=== PATIENT | male | born 1990 | race Caucasian/White ===

== ENCOUNTER 2021-09-02 15:46 | Emergency (ER) | payer OTHER ==
[~2021-09-02] VITALS: Ht 180.3 cm; Wt 63.1 kg
[2021-09-02 15:52] VITALS: BP 117/78
--- NOTE | 2021-09-02 16:02 | NUR ---
PT AMB TO BED 8.
[2021-09-02 16:29] LABS: BASOPHILS % (AUTO) 0.5 % (0.0-2.0); EOSINOPHILS # (AUTO) 0.4 K/uL (0-0.4); EOSINOPHILS % (AUTO) 6.6 % (0.0-4.0); HEMATOCRIT 43.3 % (36-52); HEMOGLOBIN 14.3 g/dL (12.0-18.0); LYMPHOCYTES # (AUTO) 1.6 K/uL (2.0-11.5); LYMPHOCYTES % (AUTO) 24.9 % (20.5-51.1); MEAN CORPUSCULAR HEMOGLOBIN 32 pg (27-31); MEAN CORPUSCULAR HGB CONC 33 g/dL (33-37); MEAN CORPUSCULAR VOLUME 95.4 fL (80-94); MONOCYTES # (AUTO) 0.9 K/uL (0.8-1.0); MONOCYTES % (AUTO) 14.9 % (1.7-9.3); NEUTROPHILS # (AUTO) 3.3 K/uL (1.8-7.7); NEUTROPHILS % (AUTO) 53.1 % (42.2-75.2); PLATELET COUNT (AUTO) 243 K/uL (140-450); RED BLOOD CELL COUNT(AUTO) 4.54 MIL/uL (4.20-6.10); WHITE BLOOD COUNT (AUTO) 6.2 K/uL (4.8-10.8)
--- NOTE | 2021-09-02 16:30 | NUR ---
31YO MALE PT C/O BLOODY STOOL XSUNDAY. PT REPORTS INITIAL RED BLOODY STOOL AND BROWN DIARRHEA XTODAY. PT STATES CONSTANT CRAMPING 5/10 LLQ ABDOMINAL DISCOMFORT. PT ABDOMEN NON DISTENDED AND TENDER TO TOUCH, ACTIVE X4. PT STATES NAUSEA WHEN EATING, DNIES AT THIS TIME. DENIES N/V , CHEST PAIN OR SOB. DENIES RECENT CHANGE IN DIET OR INURY. PT AAOX4, NO VISIBLE DISTRESS, RESPIRATIONS EVEN AND UNLABORED. DAUGHTER AT BEDSIDE. HX: DENIES NKA
[2021-09-02 16:51] LABS: ANION GAP 13.2 (8-16); CARBON DIOXIDE 27.5 mmol/L (21-32); CREATININE 1.1 mg/dL (0.6-1.3); POTASSIUM 3.7 mmol/L (3.5-5.1); TOTAL BILIRUBIN 0.4 mg/dL (0.0-1.0)
--- NOTE | 2021-09-02 19:09 | NUR ---
PT TAKEN TO CT VIA WHEELCHAIR
--- NOTE | 2021-09-02 19:30 | NUR ---
REPORT GIVEN TO [facility]. ALL QUESTION ANSWERED. TRANSFER OF CARE AT THIS TIME
--- NOTE | 2021-09-02 19:40 | NUR ---
PATIETN SITTING IN BED. SIGN OTHER AT BEDSIDE. DOESNT APPEAR TO BE IN DISTRESS. RR ARE EVEN AND UNLABORED. VSS. ALL NEEDS MET.
[2021-09-02] MEDS ORDERED: BEN10 PO (20:06)
[2021-09-02] MEDS ORDERED: ONDA-188 SL (20:06)
[2021-09-02 20:10] VITALS: BP 103/74
--- NOTE | 2021-09-02 20:10 | NUR ---
Patient discharged with v/s stable. Written and verbal after care instructions given and explained. Patient alert, oriented and verbalized understanding of instructions. Ambulatory with steady gait. All questions addressed prior to discharge. ID band removed. Patient advised to follow up with PMD. Rx of MARIE BARON given. Patient educated on indication of medication including possible reaction and side effects. Opportunity to ask questions provided and answered.
== END 2021-09-02 20:10 | disposition home or self-care (01) ==
LOC: MED 15:46
DX: R10.32 Left lower quadrant pain (principal); F17.200 Nicotine dependence, unspecified, uncomplicated; Z90.49 Acquired absence of other specified parts of digestive tract; Z72.89 Other problems related to lifestyle
CPT/HCPCS: 36415; 74177; 80053; 83690; 85025; 99285; Q9967